=== PATIENT | female | born 1985 ===

== ENCOUNTER 2019-09-18 04:15 | Emergency (ER) | payer OTHER, SELFPAY ==
[2019-09-18 04:16] VITALS: BP 167/101; PULSE 125; RESP 18; TEMP 36.7; O2SAT 100; BMI 31.6
--- NOTE | 2019-09-18 04:22 | PC.NURSE ---
EKG done at 0420 and shown to ER doctor
--- NOTE | 2019-09-18 04:24 | ECG_ITS ---
Measurements Intervals [place] Rate: 99 P: 48 PA: 171 QRS: 57 QRSD: 89 T: 25 QT: 294 QTc: 378 SINUS RHYTHM POSSIBLE LEFT ATRIAL ENLARGEMENT [-0.1mV P WAVE IN V1/V2] NONSPECIFIC T-WAVE ABNORMALITY No previous ECG available for comparison Electronically Signed On 09-18-2019 14:08:44 DIRECTOR GIFT by Jaki Miles M.D. [email or web address]
--- NOTE | 2019-09-18 04:24 | CTR_ITS ---
PROCEDURE INFORMATION: Exam: CT Cervical Spine Without Contrast Exam date and time: 09/18/2019 4:26 AM Age: 34 years old Clinical indication: Injury or trauma; Fall; Work related; Initial encounter; Blunt trauma TECHNIQUE: Imaging protocol: Computed tomography images of the cervical spine without contrast. Total DLP: 814.27 mGy-cm Radiation optimization: All CT scans at this facility use at least one of these dose optimization techniques: automated exposure control; mA and/or kV adjustment per patient size (includes targeted exams where dose is matched to clinical indication); or iterative reconstruction. COMPARISON: No relevant prior studies available. FINDINGS: Vertebrae: No acute fracture. Normal alignment. Discs/Spinal canal/Neural foramina: No disc herniations. No spinal canal stenosis. No neural foraminal narrowing. Soft tissues: Unremarkable. Lungs: Lung apices are normal. CT/CT cervical spin wo con* [id number] IMPRESSION: No acute findings. Radiation Dose CTDIVOL = (mGy): DLP = 814.27 (mGy-cm)
--- NOTE | 2019-09-18 04:24 | XR_ITS ---
WS: [id number] XR hip LT 2-3V wo/w pel* [id number] REASON FOR EXAM: trauma FINDINGS: The left hip joint appears to be within normal limits. The acetabulum femoral head are norm al. The head of the femur, neck, and intertrochanteric areas were normal. The left hemipelvis was normal. XR/XR hip LT 2-3V wo/w pel* [id number] IMPRESSION: Negative left hip.
--- NOTE | 2019-09-18 04:24 | XR_ITS ---
WS: [id number] XR elbow RT min 3V* [id number] REASON FOR EXAM: trauma FINDINGS: Spurring is seen off the lateral condyle of the humerus. This does not appear to be an avul seda fracture. The medial and lateral collateral ligaments show no unusual calcification. There is no abnormal fat pad changes seen. XR/XR elbow RT min 3V* [id number] IMPRESSION: Spurring off the lateral condyle of the humerus. No definite fractures.
--- NOTE | 2019-09-18 04:24 | CTR_ITS ---
PROCEDURE INFORMATION: Exam: CT Head Without Contrast Exam date and time: 09/18/2019 4:26 AM Age: 34 years old Clinical indication: Injury or trauma; Fall; Work related; Initial encounter; Blunt trauma (contusions or hematomas); With loss of consciousness; Loss of consciousness for 30 minutes or less; Syncope and collapse TECHNIQUE: Imaging protocol: Computed tomography of the head without contrast. Total DLP: 793.55 mGy-cm Radiation optimization: All CT scans at this facility use at least one of these dose optimization techniques: automated exposure control; mA and/or kV adjustment per patient size (includes targeted exams where dose is matched to clinical indication); or iterative reconstruction. COMPARISON: No relevant prior studies available. FINDINGS: Brain: Normal. No hemorrhage. Unremarkable white matter. No mass effect. Ventricles: Normal. No ventriculomegaly. Bones/joints: Unremarkable. No acute fracture. Sinuses: Fluid and mucosal thickening is seen within the ethmoidal and maxillary sinuses. A 13 mm convexity is seen within the left maxillary sinus. Mastoid air cells: Visualized mastoid air cells are well aerated. Soft tissues: Unremarkable. CT/CT head wo con* [id number] IMPRESSION: There are no acute intracranial findings. Radiation Dose CTDIVOL = (mGy): DLP = 793.55 (mGy-cm)
[2019-09-18 04:38] VITALS: RESP 15
[2019-09-18] MEDS: oxyCODONE-APAP 5-325 mg Tablet 2 TAB PO (04:38)
[2019-09-18] MEDS: ondansetron 4 MG Tablet 8 MG PO (04:38)
[2019-09-18 04:41] VITALS: O2SAT 100
--- NOTE | 2019-09-18 04:50 | PC.NURSE ---
portable xray at bedside
--- NOTE | 2019-09-18 05:06 | PC.NURSE ---
pt transported to ct by stretcher with tech
[2019-09-18 05:15] LABS: Basophils # 0.1 10^3/uL (0.0-0.1); Basophils % 0.4 %; Eosinophils % 0.1 %; Hematocrit 37.2 % (37.0-47.0); Hemoglobin 12.3 g/dL (11.5-15.3); Lymphocytes % 15.7 %; Mean Corpuscular HGB Conc 33.1 g/dL (30.0-36.0); Mean Corpuscular Hemoglobin 28.3 pg (28.0-34.0); Mean Corpuscular Volume 85.5 fL (81-99); Mean Platelet Volume 10.8 fL (7.4-10.4); Monocytes # 0.6 10^3/uL (0.2-0.9); Monocytes % 4.4 %; Neutrophils # 10.1 10^3/uL (1.8-7.7); Neutrophils % 79.1 %; Nucleated Red Blood Cells % 0 %; Platelet Count 311 10^3/cmm (130-400); Red Blood Count 4.35 10^6/uL (4.1-5.3); Red Cell Distribution Width 12.5 % (12.1-15.1); White Blood Count 12.8 10^3/uL (4.0-10.0)
[2019-09-18 05:23] LABS: HCG, Serum Qual Negative (Negative)
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
[2019-09-18 05:30] LABS: Anion Gap 18.3 (5-19); Blood Urea Nitrogen 8 mg/dL (6-20); Calcium 9.8 mg/dL (8.5-10.5); Carbon Dioxide 24 mmol/L (22-29); Chloride 97 mmol/L (98-107); Glomerular Filtration Rate 95.8 mL/min (90-130); Glucose 139 mg/dL (65-115); Osmolality Calculated 280 mOsm/kg (285-295); Potassium 3.3 mmol/L (3.5-5.1); Sodium 136 mmol/L (136-145)
[2019-09-18 05:31] LABS: Troponin T (5th) Once 7 ng/mL (0-10)
[2019-09-18 06:15] VITALS: BP 149/77; PULSE 101; O2SAT 100
[2019-09-18 06:28] LABS: Add Urine Microscopic? NO
[2019-09-18 06:31] VITALS: BP 130/67; PULSE 77; O2SAT 99
[2019-09-18] MEDS: ketorolac 10 mg Tablet PO (06:34)
[2019-09-18 06:45] LABS: Urine Appearance Clear (CLEAR); Urine Color Yellow (Yellow)
[2019-09-18 06:46] LABS: Bilirubin Urine Neg (NEGATIVE); Blood Urine Neg (Negative); Glucose Urine UA Norm (Normal); Ketones Urine Negative (Negative); Leukocyte Esterase Urine Negative (Negative); Nitrate Urine Negative (Negative); Protein Urine Neg (Negative); Urobilinogen Urine Norm (Negative)
== END 2019-09-18 06:31 | disposition home or self-care (01) ==
PROVIDERS: Emergency Provider Emergency Medicine; Family Provider Family Medicine
DX: S06.0X0A Concussion without loss of consciousness, initial encounter (principal); S00.03XA Contusion of scalp, initial encounter; S70.02XA Contusion of left hip, initial encounter; S50.01XA Contusion of right elbow, initial encounter; R55 Syncope and collapse; Z86.73 Personal history of transient ischemic attack (TIA), and cerebral infarction without residual deficits; Y04.2XXA Assault by strike against or bumped into by another person, initial encounter
CPT/HCPCS: 36415; 70450; 72125; 73080; 73502; 80048; 81003; 84484; 84703; 85025; 93005; 99282; 99284; A9270; Q0162

== ENCOUNTER 2022-02-05 18:46 | Emergency (ER) | payer MEDICAID, SELFPAY ==
[2022-02-05 19:31] VITALS: RESP 18; TEMP 37.1
--- NOTE | 2022-02-05 19:40 | XRR_ITS ---
PROCEDURE INFORMATION: Exam: XR Chest Exam date and time: 02/05/2022 7:45 PM Age: 36 years old Clinical indication: Cough and dyspnea TECHNIQUE: Imaging protocol: Radiologic exam of the chest. Views: 1 view. COMPARISON: CT cervical spin wo con* [id number] 09/18/2019 5:32 AM FINDINGS: Lungs: Unremarkable. No consolidation. Pleural spaces: Unremarkable. No pleural effusion. No pneumothorax. Heart/Mediastinum: Unremarkable. No cardiomegaly. Bones/joints: Unremarkable. XR/XR chest 1V portable [id number] IMPRESSION: No acute findings.
--- NOTE | 2022-02-05 20:05 | W.ED.GENADLT ---
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 Patient tells me that her daughter are sick at home with similar symptoms. However her children has largely recovered. She says that her symptoms has worsened and now she has lost her voice. Patient reports sore throat and decreased p.o. intake. Reports mild loose stool. Denies any nausea vomiting, acute abdominal pain, or chest pain. No complaints, melena/hematochezia. Onset:12 days ago Duration:12 days Location:home Severity:moderate Associated symptoms: Reports dyspnea and malaise; Deny chest pain, nausea, rash, palpitations or vomiting Review of Systems Const: Reports: chills, body aches, fatigue, malaise and other (+generalized weakness); Denies: fever(s) Eyes: Denies: change in vision ENMT: Reports: mouth pain and other (+sore throat, red eyes b/l, eye drainage b/l) Card: Denies: chest pain or palpitations Resp: Reports: dyspnea and productive cough GI: Denies: abdominal pain, nausea, vomiting or diarrhea : Denies: dysuria Musc: Denies: extremity pain Skin/Breast: Denies: rash or new lesions Neuro: Denies: weakness in extremities Psych: Reports: other (Normal mood) Cirilo/Lymph: Denies: easy bruising [facility] ED PFSH: Medical History No pertinent past medical history Social History Smoking and tobacco status: never smoked Alcohol intake: never Substance/Drug Use: never Physical Exam Const: COMMON NORMALS: alert HENMT: COMMON NORMALS: atraumatic HEAD & SCALP: atraumatic MOUTH: moist mucous membranes abnormal OTHER: + Mild posterior oropharyngeal erythema, no uvula deviation, no tonsillar swelling or posterior pharyngeal drainage +nasal congestion b/l Eye: COMMON NORMALS: EOMs intact bilaterally and negative for conjunctivae normal (+b/l conjunctivitis) CONJUNCTIVA: No conjunctivae normal (+b/l conjunctivitis) Neck/C-Spine: COMMON NORMALS: full ROM and supple Resp: COMMON NORMALS: normal respiratory effort and clear to auscultation bilaterally AUSCULTATION: clear to auscultation bilaterally Cardio: COMMON NORMALS: regular rate RATE: regular rate GI: COMMON NORMALS: Soft to palpation and non-tender PALPATION: Yes Soft to palpation OTHER: No focal TTP. NO guarding rebound, guarding, rigidity. No CVA tenderness to percussion. Neg Roman/Neg McBurney's point tenderness, no suprabupic tenderness to palpation. 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 Patient has no signs of respiratory distress or increased work of breathing. No signs of upper airway compromise. White count 17.3 today likely reactive X-ray chest did not show any focal findings. Patient strep is negative. COVID antigen, influenza negative. Suspect that the source of patient's symptoms likely viral nature. However, given the fact the patient has prolonged symptoms I will give patient a prescription for antibiotics given the leukocytosis and possible early superimposed pneumonia She received DuoNeb, NS, Tylenol with reports symptomatic improvement. Rx albuterol PRN dyspnea and tylenol PRN pain, augmentin in case of early pneumonia, and benzontate PRN cough Disposition: Discharge. Patient counseled regarding diagnostic impression, treatment plan. Patient given ED strict return precautions to return for continuation, worsening, or development of new symptoms. Instructed to f/u w/ PCP regarding symptoms today. Patient verbalized understanding. Lab Data : 02/05/22 20:06 02/05/22 20:06 Radiology Impressions Chest X-Ray 02/05/22 19:40 IMPRESSION: No acute findings. Laboratory Results WBC 17.3 10^3/uL (4.0-10.0) H 02/05/22 20:06 RBC 4.26 10^6/uL (4.1-5.3) 02/05/22 20:06 Hgb 12.2 g/dL (11.5-15.3) 02/05/22 20:06 Hct 34.7 % (37.0-47.0) L 02/05/22 20:06 MCV 81.5 fl (81-99) 02/05/22 20:06 MCH 28.6 pg (28.0-34.0) 02/05/22 20:06 MCHC 35.2 g/dL (30.0-36.0) 02/05/22 20:06 RDW 12.4 % (12.1-15.1) 02/05/22 20:06 Plt Count 361 10^3/cmm (130-400) 02/05/22 20:06 MPV 9.7 fL (7.4-10.4) 02/05/22 20:06 Neut % (Auto) 68.2 % 02/05/22 20:06 Lymph % (Auto) 25.1 % 02/05/22 20:06 [place] % (Auto) 5.1 % 02/05/22 20:06 Eos % (Auto) 0.3 % 02/05/22 20:06 Baso % (Auto) 0.4 % 02/05/22 20:06 Neut # (Auto) 11.78 10^3/uL (1.8-7.7) H 02/05/22 20:06 Lymph # (Auto) 4.3 10^3/uL (0.8-4.8) 02/05/22 20:06 [place] # (Auto) 0.9 10^3/uL (0.2-0.9) 02/05/22 20:06 Eos # (Auto) 0.1 10^3/uL (0.0-0.8) 02/05/22 20:06 Baso # (Auto) 0.1 10^3/uL (0.0-0.1) 02/05/22 20:06 Nucleated RBC % (auto) 0 % 02/05/22 20:06 Nucleated RBCs # 0.0 /100WBC 02/05/22 20:06 Sodium 139 mmol/L (136-145) 02/05/22 20:06 Potassium 3.5 mmol/L (3.5-5.1) 02/05/22 20:06 Chloride 102 mmol/L (98-107) 02/05/22 20:06 Carbon Dioxide 22 mmol/L (22-29) 02/05/22 20:06 Anion Gap 18.5 (5-19) 02/05/22 20:06 BUN 10 mg/dL (6-20) 02/05/22 20:06 Creatinine 0.6 mg/dL (0.5-0.9) 02/05/22 20:06 GFR Calculation 113.1 mL/min (90-130) 02/05/22 20:06 Glucose 120 mg/dL (65-115) H 02/05/22 20:06 Calculated Osmolality 288 mOsm/kg (285-295) 02/05/22 20:06 Calcium 8.9 mg/dL (8.5-10.5) 02/05/22 20:06 RSV Nasal Swab Not detected (Not Detected) 02/05/22 19:52 RSV Nasal Swab Int Cntl Not detected (Not Detected) 02/05/22 19:52 Adenovirus (PCR) Not detected (Not Detected) 02/05/22 19:52 Human Metapneumovir PCR Not detected (Not Detected) 02/05/22 19:52 Influenza A (RT-PCR) Not detected (Not Detected) 02/05/22 19:52 Influenza A (H1) PCR Not detected (Not Detected) 02/05/22 19:52 Influenza A (H3) PCR Not detected (Not Detected) 02/05/22 19:52 Influenza Type A Ag Negative (Negative) 02/05/22 19:52 Influenza Type B Ag Negative (Negative) 02/05/22 19:52 Influenza B (RT-PCR) Not detected (Not Detected) 02/05/22 19:52 Parainfluenzae Type 1 Not detected (Not Detected) 02/05/22 19:52 Parainfluenzae Type 2 Not detected (Not Detected) 02/05/22 19:52 Parainfluenzae Type 3 Not detected (Not Detected) 02/05/22 19:52 RSV Ab Comment see note 02/05/22 19:52 Rhinovirus (PCR) Not detected (Not Detected) 02/05/22 19:52 SARS-CoV-2 Ag (Rapid) Negative (Negative) 02/05/22 19:52 Group A Strep Rapid Negative (Negative) 02/05/22 19:52 Imaging Data Other Imaging: Radiologist's impression: [address] [address] XRay Report Signed Patient: Maren Snyder Unit #: [id number] : [id number] Age/Sex: 36 / F ADM Date: 02/05/22 Loc: ER Room/Bed: Attending Dr: Ordering Provider/Ordering MD: Nicki Freire MD Date of Service: 02/05/22 Procedure(s): XR chest 1V portable [id number] Accession Number(s): [id number] Report Number: [id number] PROCEDURE INFORMATION: Exam: XR Chest Exam date and time: 02/05/2022 7:45 PM Age: 36 years old Clinical indication: Cough and dyspnea TECHNIQUE: Imaging protocol: Radiologic exam of the chest. Views: 1 view. COMPARISON: CT cervical spin wo con* [id number] 09/18/2019 5:32 AM FINDINGS: Lungs: Unremarkable. No consolidation. Pleural spaces: Unremarkable. No pleural effusion. No pneumothorax. Heart/Mediastinum: Unremarkable. No cardiomegaly. Bones/joints: Unremarkable. XR/XR chest 1V portable [id number] IMPRESSION: No acute findings. ? Dictated By: Sang Arellano Signed By: Sang Arellano Signed Date/Time: 02/05/222017 DD/ 44 Discharge Plan Discharge Patient Disposition: Home Clinical Impression: Conjunctivitis, Sore throat, Dyspnea, Cough, Discharge from eye Condition: Stable Prescriptions: New amoxicillin-pot clavulanate 875-125 mg tablet 1 tab PO BID 10 Days Qty: 20 0RF benzonatate 100 mg capsule 100 mg PO BID PRN (Reason: cough) 10 Days Qty: 20 0RF No Action Zofran 4 mg tablet 4 mg PO Q6H PRN (Reason: nausea and vomiting) Qty: 10 0RF ketorolac 10 mg tablet 10 mg PO Q6H PRN (Reason: pain) Qty: 10 0RF Discharge Orders: Discharge ED (Routine); Ordered 02/05/22 Ordered By: Nicki Freire Discharge Diet: Advance as tolerated Discharge Activity: Increase activity as tolerated Patient Instructions: Acute Cough (ED) Activity Restrictions/Additional Instructions: Come back to the emergency room if your symptoms worsen, have any shortness of breath, fever/chills, dehydration, inability tolerate food or drinks, any difficulty breathing, or any new or concerning complaints. Stand Alone Forms: Work/School Release Coding Level of Care Code ED Garment Sewer Hand for [place] Fwd Exam Comprehensive
[2022-02-05] MEDS: acetaminophen 500 mg Tablet PO (20:11)
[2022-02-05 20:12] LABS: Basophils # 0.1 10^3/uL (0.0-0.1); Basophils % 0.4 %; Eosinophils # 0.1 10^3/uL (0.0-0.8); Eosinophils % 0.3 %; Hematocrit 34.7 % (37.0-47.0); Hemoglobin 12.2 g/dL (11.5-15.3); Lymphocytes # 4.3 10^3/uL (0.8-4.8); Lymphocytes % 25.1 %; Mean Corpuscular HGB Conc 35.2 g/dL (30.0-36.0); Mean Corpuscular Hemoglobin 28.6 pg (28.0-34.0); Mean Corpuscular Volume 81.5 fl (81-99); Mean Platelet Volume 9.7 fL (7.4-10.4); Monocytes # 0.9 10^3/uL (0.2-0.9); Monocytes % 5.1 %; Neutrophils # 11.78 10^3/uL (1.8-7.7); Neutrophils % 68.2 %; Nucleated Red Blood Cells % 0 %; Platelet Count 361 10^3/cmm (130-400); Red Blood Count 4.26 10^6/uL (4.1-5.3); Red Cell Distribution Width 12.4 % (12.1-15.1); White Blood Count 17.3 10^3/uL (4.0-10.0)
[2022-02-05] MEDS: sodium chloride 0.9% 1,000 ML 999 ML IV (20:12)
[2022-02-05] MEDS: ipratropium-albuterol 3 mL Neb INHALATION ×3 (20:16→20:20)
[2022-02-05 20:18] VITALS: PULSE 99; RESP 18; O2SAT 97
[2022-02-05 20:23] LABS: Rapid Strep A Test Negative (Negative)
[2022-02-05 20:28] VITALS: PULSE 103
[2022-02-05 20:35] LABS: Influenza A by IFA Negative (Negative); Influenza B by IFA Negative (Negative); SARS Covid-2 Antigen Negative (Negative)
[2022-02-05 20:45] LABS: Anion Gap 18.5 (5-19); Blood Urea Nitrogen 10 mg/dL (6-20); Calcium 8.9 mg/dL (8.5-10.5); Carbon Dioxide 22 mmol/L (22-29); Chloride 102 mmol/L (98-107); Glomerular Filtration Rate 113.1 mL/min (90-130); Glucose 120 mg/dL (65-115); Osmolality Calculated 288 mOsm/kg (285-295); Potassium 3.5 mmol/L (3.5-5.1); Sodium 139 mmol/L (136-145)
[2022-02-05] MEDS: benzonatate 100 mg Capsule PO (20:55)
[2022-02-05 21:45] VITALS: RESP 16
[2022-02-09 16:22] LABS: Adenovirus Not Detected (Not Detected); Human Metapneumovirus Not Detected (Not Detected); Human Parainflu Virus 1 Not Detected (Not Detected); Human Parainflu Virus 2 Not Detected (Not Detected); Human Parainflu Virus 3 Not Detected (Not Detected); Human Rsv A Not Detected (Not Detected); Influenza A Not Detected (Not Detected); Influenza B Not Detected (Not Detected); Rhinovirus/Enterovirus Not Detected (Not Detected)
== END 2022-02-05 21:46 | disposition home or self-care (01) ==
PROVIDERS: Emergency Medicine; Emergency Provider Emergency Medicine
DX: R05.9 Cough, unspecified (principal); J02.9 Acute pharyngitis, unspecified; H10.9 Unspecified conjunctivitis; R06.00 Dyspnea, unspecified; Z20.822 Contact with and (suspected) exposure to COVID-19
CPT/HCPCS: 71045; 80048; 85025; 87081; 87426; 87633; 87804; 87880; 94640; 96360; 96361; 99284; J7030